=== PATIENT | male | born 1955 | race Caucasian/White ===

== ENCOUNTER 2025-03-04 13:12 | Outpatient (CLI) | payer MEDICARE, SELFPAY ==
--- NOTE | 2025-03-04 | DI.RAD_ITS ---
Exam(s) XR CHEST 2V PA LATERAL EXAM: XR CHEST 2V PA LATERAL CLINICAL HISTORY: COUGH R05.9. TECHNIQUE: 2D digital imaging was performed. COMPARISON: No exams were available for comparison FINDINGS: 2 views: Heart size is normal. The mediastinum is not widened. Lungs are clear. No infiltrates nor pleural effusions. IMPRESSION: No acute pulmonary findings. DATA REPOSITORY: RADIATION DOSE DELIVERED:
== END 2025-03-04 13:32 ==
PROVIDERS: Visit Provider Physician Assistant Medical
DX: R05.9 Cough, unspecified (principal)
CPT/HCPCS: 71046